=== PATIENT | female | born 1990 | race Caucasian/White ===

== ENCOUNTER 2018-08-23 08:49 | Emergency (ER) | payer MEDICAID, OTHER ==
[2018-08-23 09:07] VITALS: BP 124/74
[2018-08-23] MEDS ORDERED: DEXAMETHASONE 10 MG/ML VIAL PO STA (09:19)
[2018-08-23] MEDS ORDERED: CHERRY SYRUP 10 ML UDC PO ONE (09:19)
[2018-08-23] MEDS ORDERED: LIDOCAINE 1% 2 ML VIAL MC ONE (09:20)
[2018-08-23] MEDS ORDERED: cefTRIAXone 1 GM VIAL IM STA (09:20)
--- NOTE | 2018-08-23 09:22 | ED Physician Documentation ---
PD HPI FEMALE - Stated complaint Stated Complaint: SIDE PX/BLOOD IN URINE - Chief complaint Chief Complaint: Abd Pain - History obtained from History obtained from: Patient - History of Present Illness Timing - onset: How many days ago (3) Timing - duration: Days (3) Timing - details: Gradual onset, Still present Associated symptoms: Back pain, Pelvic pain, Dysuria, Urinary frequency, Other (cough and hearing loss) Similar symptoms before: Diagnosis (kidney infection) Recently seen: Not recently seen - Additional information Additional information: Previously well 28-year-old female history of developed urinary urgency frequenc y and dysuria with left flank pain that radiates into the abdomen and she has some nausea as well. She is also developed a cough and congestion which is typical for her and she has lost her hearing. She states that she has an ear infection now she is not on treatment for this she has had this happen to her a number of times over the past year where symptoms have resolved. Review of Systems Constitutional: reports: Chills. denies: Fever Eyes: denies: Decreased vision Ears: reports: Loss of hearing, Ear pain Nose: reports: Rhinorrhea / runny nose, Congestion Throat: denies: Sore throat Cardiac: denies: Chest pain / pressure, Palpitations Respiratory: reports: Cough. denies: Dyspnea GI: reports: Nausea. denies: Abdominal Pain, Vomiting, Constipation, Diarrhea : reports: Dysuria, Frequency Skin: denies: Rash Musculoskeletal: reports: Back pain. denies: Neck pain PD PAST MEDICAL HISTORY - Present Medications Home Medications: Ambulatory Orders Medication Instructions Recorded Confirmed Amox/Clav 875/125 [Augmentin] 1 each PO Q12H #20 tablet 08/23/18 - Allergies Allergies/Adverse Reactions: Allergies Allergy/AdvReac Type Severity Reaction Status Date / Time No Known Drug Allergies Allergy Verified 08/23/18 09:07 PD ED PE NORMAL - Vitals Vital signs reviewed: Yes (tachy ) - General General: Alert and oriented X 3, No acute distress, Well developed/nourished - HEENT HEENT: Atraumatic, PERRL, EOMI, Other (both TM's are inflamed with indistinct landmarks. ) - Neck Neck: Supple, no meningeal sign, No bony TTP - Cardiac Cardiac: No murmur, Other (tachy to 120) - Respiratory Respiratory: No respiratory distress, Clear bilaterally - Abdomen Abdomen: Soft, Non tender - Back Back: No spinal TTP, Other (Left CAV tenderness ) - Derm Derm: Normal color, Warm and dry, No rash - Extremities Extremities: No deformity, No edema - Neuro Neuro: Alert and oriented X 3, technical laboratory asst 2-12 intact, No motor deficit, No sensory deficit, Normal speech Eye Opening: Spontaneous Motor: Obeys Commands Verbal: Oriented GCS Score: 15 - Psych Psych: Normal mood, Normal affect Results - Vitals Vitals: Vital Signs - 24 hr 08/23/18 09:05 Temperature 36.3 C L Heart Rate 124 H Respiratory 14 Rate Blood Pressure 124/74 O2 Saturation 98 Oxygen O2 Source Room air - Labs Labs: Laboratory Tests 08/23/18 09:45 Urine Color DARK YELLOW Urine Clarity SL. CLOUDY Urine pH 7.0 Ur Specific Bourg 1.010 Urine Protein 30 H Urine Glucose (UA) NEGATIVE Urine Ketones 15 H Urine Occult Blood LARGE H Urine Nitrite NEGATIVE Urine Bilirubin MODERATE H Urine Urobilinogen 0.2 (NORMAL) Ur Leukocyte Esterase SMALL H Urine RBC 6-10 H Urine WBC >25 H Ur Squamous Epith Cells FEW Squamous Urine Bacteria Few Ur Microscopic Review INDICATED Urine Culture Comments INDICATED Urine HCG, Qual NEGATIVE PD MEDICAL DECISION MAKING - ED course Complexity details: considered differential, d/w patient ED course: 28-year-old female with pyelonephritis and otitis is administered Rocephin 1 g IM and dexamethasone 10 mg orally we will place her on some Augmentin to treat both infections. Departure - Departure Disposition: 01 Home, Self Care Clinical Impression: Pyelonephritis Otitis media Qualifiers: Otitis media type: suppurative Chronicity: acute Laterality: bilateral Recurrence: recurrent Spontaneous tympanic membrane rupture: without spontaneous rupture Qualified Code(s): H66.006 - Acute suppurative otitis media without spontaneous rupture of ear drum, recurrent, bilateral Condition: Stable Instructions: ED Otitis Media Acute Adult, ED Kidney Infec Female Follow-Up: [facility] [Provider Group] Prescriptions: Amox/Clav 875/125 [Augmentin] 1 each PO Q12H #20 tablet
[2018-08-23 09:56] LABS: GLUCOSE, URINE (UA) NEGATIVE (NEGATIVE); KETONES,URINE (UA) 15 mg/dL (NEGATIVE); LEUKOCYTE ESTERASE, URINE SMALL (NEGATIVE); NITRITE,URINE NEGATIVE (NEGATIVE); OCCULT BLOOD,URINE LARGE (NEGATIVE); PROTEIN,URINE 30 mg/dL (NEGATIVE); UROBILINOGEN,URINE 0.2 (NORMAL) E.U./dL (NORMAL)
[2018-08-23 10:00] LABS: CLARITY,URINE SL. CLOUDY (CLEAR); HCG UR QUAL NEGATIVE
[2018-08-23 10:06] LABS: BILIRUBIN,URINE MODERATE (NEGATIVE); ICTOTEST,URINE POSITIVE
[2018-08-23 10:12] LABS: BACTERIA,URINE Few /HPF (None Seen); SQUAMOUS EPITHELIAL CELL,UR FEW Squamous (<= Few)
== END 2018-08-23 10:47 | disposition home or self-care (01) ==
LOC: ED 08:49
DX: N12 Tubulo-interstitial nephritis, not specified as acute or chronic (principal); H66.006 Acute suppurative otitis media without spontaneous rupture of ear drum, recurrent, bilateral
CPT/HCPCS: 81001; 81025; 87086; 87181; 96372; 99283; A9270; 81003

== ENCOUNTER 2023-08-11 10:15 | Outpatient (CLI) | payer OTHER ==
--- NOTE | 2023-08-11 13:49 | XRAY Report ---
PROCEDURE: Hand 3+V RT INDICATIONS: CONTUSION OF RIGHT HAND TECHNIQUE: 3 views of the hand(s) acquired. COMPARISON: None. FINDINGS: Bones: There is a mildly displaced mid fourth metacarpal fracture. No intra-articular extension. Soft tissues: No suspicious soft tissue calcifications or masses. IMPRESSION: Mildly displaced mid fourth metacarpal fracture. Reviewed by: Mandy aMttson MD on 08/11/2023 1:47 PM PDT Approved by: Mandy Mattson MD on 08/11/2023 1:47 PM PDT Station ID: [id number]
--- NOTE | 2023-08-11 13:50 | XRAY Report ---
PROCEDURE: Hand 1-2V RT INDICATIONS: OTHER FRACTURE OF FOURTH METACARPAL BONE, RIGHT HAND TECHNIQUE: 2 views of the hand(s) acquired. COMPARISON: X-ray hand 08/11/2023 FINDINGS: Bones: Interval reduction of mid fourth metacarpal fracture. There is mildly improved anatomic align ment. Soft tissues: No suspicious soft tissue calcifications or masses. IMPRESSION: Mildly improved mid fourth metacarpal fracture anatomic alignment post reduction. Reviewed by: Mandy Mattson MD on 08/11/2023 1:48 PM PDT Approved by: Mandy Mattson MD on 08/11/2023 1:48 PM PDT Station ID: [id number]
== END 2023-08-11 10:30 | disposition home or self-care (01) ==
LOC: DI.N 10:15
PROVIDERS: ATTEND Physician Assistant
DX: S62.324A Displaced fracture of shaft of fourth metacarpal bone, right hand, initial encounter for closed fracture (principal)

== ENCOUNTER 2023-09-14 14:59 | Outpatient (CLI) | payer OTHER ==
--- NOTE | 2023-09-14 15:29 | XRAY Report ---
PROCEDURE: Hand 3+V RT INDICATIONS: RIGHT HAND FRACTURE TECHNIQUE: 3 views of the hand(s) acquired. COMPARISON: 08/11/2023. FINDINGS: Bones: Healing mildly displaced fracture of the fourth metacarpal shaft with callus formation.. No suspicious bony lesions. Soft tissues: No suspicious soft tissue calcifications or masses. IMPRESSION: Healing fourth metacarpal shaft fracture. Reviewed by: Yony Duval MD on 09/14/2023 3:28 PM PDT Approved by: Yony Duval MD on 09/14/2023 3:28 PM PDT Station ID: [id number]
== END 2023-09-14 15:00 | disposition home or self-care (01) ==
LOC: DI 14:59
PROVIDERS: ATTEND Orthopaedic Surgery
DX: S62.324D Displaced fracture of shaft of fourth metacarpal bone, right hand, subsequent encounter for fracture with routine healing (principal)